=== PATIENT | female | born 1945 | race African-American/Black ===

== ENCOUNTER 2022-03-20 09:56 | Inpatient (IN) ==
[2022-03-20] MEDS ORDERED: Ipratropium/Albuterol Neb 3 ML IH ONE (10:03)
[2022-03-20] MEDS ORDERED: Iopamidol - 370 500 ML MLS IVP ONE (10:03)
[2022-03-20] MEDS ORDERED: Ipratropium/Albuterol Neb 3 ML ONE (10:04)
[2022-03-20 10:33] LABS: Hemoglobin 9.4 g/dL (11.5-15.4)
[2022-03-20 10:35] LABS: Hematocrit 29.4 % (35.3-44.9); Immature Platelets 4.5 % (1.1-6.1); Mean Corpuscular Hemoglobin 30.8 pg (28.0-33.3); Mean Corpuscular Volume 96.4 fL (83.0-100.0); Mean Platelet Volume 12.2 fL (9.4-12.4); Nucleated Red Blood Cells 2.8 /100 WBC (0); Platelet Count 159 K/mcL (140-400); Red Blood Count 3.05 M/mcL (3.82-4.97); Red Cell Distribution Width 16.7 % (11.5-14.5); White Blood Count 8.3 K/mcL (4.3-11.1)
[2022-03-20 11:05] LABS: Basophils # 0.2 K/mcL (0.0-0.2); Eosinophils # 0.3 K/mcL (0.0-0.6); Monocytes # 0.8 K/mcL (0.0-1.3); Platelet Estimate Normal (Normal)
[2022-03-20 12:21] LABS: VBG HCO3 19 mEq/L (21-27); VBG PCO2 36 mmHg (41-51); VBG PH 7.33 pH Units (7.32-7.42); VBG PO2 46 mmHg (25-50)
[2022-03-20 12:34] LABS: Calcium 8.5 mg/dL (8.6-10.3); Potassium 4.1 mEq/L (3.5-5.1)
[2022-03-20 12:44] LABS: Troponin I 0.06 ng/mL (< 0.04)
[2022-03-20 13:15] LABS: Amorphous Sediment,Urine Few per hpf (None-Few); Bacteria,Urine Moderate per hpf (None-Few); Bilirubin,Urine Negative (Negative); Blood,Urine Small (Negative); Clarity,Urine Turbid (Clear); Color,Urine Yellow (Yellow); Glucose,Urine (UA) Normal (Normal); Ketones,Urine Negative (Negative); Leukocyte Esterase,Urine Negative (Negative); Mucus,Urine Few per lpf (None-Few); Nitrite,Urine Negative (Negative); Protein,Urine >=600 mg/dL (Neg-Trace); RBC,Urine 0-3 per hpf (0-3); Specific Gravity,Urine 1.022 (1.010-1.025); Urobilinogen,Urine Normal (Normal); WBC,Urine 0-3 per hpf (0-3)
[2022-03-20 13:55] LABS: Influenza A PCR Negative (Negative); Influenza B PCR Negative (Negative); Resp. Syncytial Virus PCR Negative (Negative)
[2022-03-20 13:56] LABS: SARS-CoV-2 by PCR (In House) Negative (Negative)
[2022-03-20] MEDS ORDERED: methylPREDNISolone 125 MG/2 ML VIAL IVP ONE (14:09)
[2022-03-20] MEDS ORDERED: levoFLOXacin 750 MG/150 ML 750 MG/150 ML BAG IVPB ONE (14:15)
[2022-03-20] MEDS ORDERED: Naloxone 0.4 MG/ML INJ IVP PRN (14:43)
[2022-03-20] MEDS: Furosemide 40 MG/4 ML VIAL IVP SCH ×2 (15:41→21:38)
[2022-03-20] MEDS: Ipratropium/Albuterol Neb 3 ML IH SCH ×2 (17:39→23:13)
[2022-03-20] MEDS ORDERED: MethylPREDNISolone 40 MG/ML VIAL IVP SCH (18:00)
[2022-03-20] MEDS: MethylPREDNISolone 40 MG/ML VIAL IVP SCH (19:00)
[2022-03-20] MEDS ORDERED: Aspirin 81 MG TAB.CHEW PO ONE (20:03)
[2022-03-21] MEDS: Ipratropium/Albuterol Neb 3 ML IH SCH ×4 (04:09→23:06)
[2022-03-21 04:51] LABS: Calcium 8.3 mg/dL (8.6-10.3); Chol/HDL Ratio 4.3 (0-4.9); Magnesium 2.3 mg/dL (1.6-2.6); Potassium 4.1 mEq/L (3.5-5.1)
[2022-03-21 04:58] LABS: Basophils % 0.2 %; Eosinophils % 0.4 %; Hematocrit 25.3 % (35.3-44.9); Hemoglobin 8.3 g/dL (11.5-15.4); Immature Granulocytes % 0.7 % (0-4); Lymphocytes # 0.8 K/mcL (0.6-4.6); Lymphocytes % 13.3 %; Mean Corpuscular HGB Conc 32.8 g/dL (31.6-35.5); Mean Corpuscular Hemoglobin 29.9 pg (28.0-33.3); Mean Platelet Volume 10.6 fL (9.4-12.4); Monocytes # 0.7 K/mcL (0.0-1.3); Monocytes % 12.5 %; Neutrophils # 4.2 K/mcL (1.6-8.9); Nucleated Red Blood Cells 1.4 /100 WBC (0); Platelet Count 122 K/mcL (140-400); Red Blood Count 2.78 M/mcL (3.82-4.97); Red Cell Distribution Width 15.8 % (11.5-14.5); Segmented Neutrophils % 72.9 %; White Blood Count 5.7 K/mcL (4.3-11.1)
[2022-03-21 05:20] LABS: Estimated Average Glucose 123 mg/dl; Hemoglobin A1C 5.9 %
[2022-03-21] MEDS: MethylPREDNISolone 40 MG/ML VIAL IVP SCH (06:09)
[2022-03-21] MEDS ORDERED: levoFLOXacin 750 MG/150 ML 750 MG/150 ML BAG IVPB SCH (09:00)
[2022-03-21] MEDS: Furosemide 40 MG/4 ML VIAL IVP SCH ×2 (10:45→21:32)
[2022-03-21] MEDS: Aspirin Enteric Coated 81 MG Tablet PO SCH (10:46)
[2022-03-21] MEDS ORDERED: Dextrose Gel 15 GM/37.5 ML TUBE PO PRN ×2 (12:33)
[2022-03-21] MEDS ORDERED: *HR* Dextrose 50 % in Water (Syg) 50 ML SYRINGE IVP PRN (12:33)
[2022-03-21] MEDS ORDERED: D5% in Water 1,000 ML IVC PRN (12:33)
[2022-03-21 15:58] LABS: Appearance of Pleural Fl Clear (Clear)
[2022-03-21 16:08] LABS: RBC,Pleural Fluid < 2000 RBC/mcL
[2022-03-21 16:57] LABS: Glucose,Pleural Fluid 141 mg/dL (No Ref Range); LDH,Pleural Fluid 82 Units/L (No Ref Range); Total Protein,Pleural Fluid < 2.0 g/dL
[2022-03-21 17:45] LABS: Basophils,Pleural Fluid 0 %; Eosinophils,Pleural Fluid 0 %; Monocytes,Pleural Fluid 0 %
[2022-03-21] MEDS: Insulin LISPRO 300 UNITS/3 ML VIAL SUBQ SCH (18:09)
[2022-03-21] MEDS: *HR* Heparin 5,000 UNIT/ML VIAL SQ SCH (18:11)
[2022-03-22] MEDS: Ipratropium/Albuterol Neb 3 ML IH SCH ×2 (04:10→11:22)
[2022-03-22] MEDS: *HR* Heparin 5,000 UNIT/ML VIAL SQ SCH (05:08)
[2022-03-22 05:26] LABS: Basophils % 0.2 %; Eosinophils % 0.3 %; Hematocrit 26.4 % (35.3-44.9); Hemoglobin 8.4 g/dL (11.5-15.4); Immature Granulocytes % 0.9 % (0-4); Lymphocytes # 1.6 K/mcL (0.6-4.6); Lymphocytes % 16.9 %; Mean Corpuscular HGB Conc 31.8 g/dL (31.6-35.5); Mean Corpuscular Hemoglobin 29.2 pg (28.0-33.3); Mean Corpuscular Volume 91.7 fL (83.0-100.0); Mean Platelet Volume 11.1 fL (9.4-12.4); Monocytes # 1.2 K/mcL (0.0-1.3); Monocytes % 12.8 %; Nucleated Red Blood Cells 2.5 /100 WBC (0); Platelet Count 116 K/mcL (140-400); Red Blood Count 2.88 M/mcL (3.82-4.97); Segmented Neutrophils % 68.9 %
[2022-03-22 05:27] LABS: Neutrophils # 6.3 K/mcL (1.6-8.9); White Blood Count 9.2 K/mcL (4.3-11.1)
[2022-03-22 07:34] VITALS: O2SAT 97
[2022-03-22] MEDS: Insulin LISPRO 300 UNITS/3 ML VIAL SUBQ SCH ×2 (07:49→12:21)
[2022-03-22] MEDS ORDERED: levoFLOXacin 750 MG/150 ML 750 MG/150 ML BAG IVPB SCH (09:00)
[2022-03-22] MEDS ORDERED: Cholecalciferol (D-3) 1,000 UNIT (25MCG) TABLET PO SCH (09:00)
[2022-03-22 09:09] LABS: Calcium 8.2 mg/dL (8.6-10.3); Potassium 3.1 mEq/L (3.5-5.1)
[2022-03-22] MEDS: Aspirin Enteric Coated 81 MG Tablet PO SCH (09:56)
[2022-03-22] MEDS: Furosemide 40 MG/4 ML VIAL IVP SCH (09:57)
[2022-03-22 11:24] VITALS: BP 145/75; PULSE 69; TEMP 97.9
[2022-03-24 00:57] LABS: Fluid Source for Albumin PLEURAL FLUID
== END 2022-03-22 16:08 | disposition home or self-care (01) | DRG 280 ==
LOC: 2ANU 09:56 → EMEROOARM 09:56 → SUATTDRO 20:06 → 2ANU 20:45
PROVIDERS: ADMIT Internal Medicine; ATTEND Internal Medicine

== ENCOUNTER 2022-03-30 14:52 | Observation (INO) ==
[2022-03-30] MEDS ORDERED: 0.9 % Sodium Chloride 1,000 ML ONE (15:22)
[2022-03-30] MEDS ORDERED: Iopamidol - 370 500 ML MLS IVP ONE (15:25)
[2022-03-30] MEDS ORDERED: 0.9 % Sodium Chloride 500 ML IVC ONE (15:26)
[2022-03-30 16:08] LABS: Basophils # 0.1 K/mcL (0.0-0.2); Basophils % 0.5 %; Eosinophils # 0.3 K/mcL (0.0-0.6); Eosinophils % 2.7 %; Hematocrit 31.5 % (35.3-44.9); Hemoglobin 10.3 g/dL (11.5-15.4); Immature Granulocytes % 0.7 % (0-4); Lymphocytes # 2.2 K/mcL (0.6-4.6); Lymphocytes % 22.6 %; Mean Corpuscular HGB Conc 32.7 g/dL (31.6-35.5); Mean Corpuscular Hemoglobin 30.1 pg (28.0-33.3); Mean Corpuscular Volume 92.1 fL (83.0-100.0); Monocytes # 0.5 K/mcL (0.0-1.3); Monocytes % 5.6 %; Neutrophils # 6.6 K/mcL (1.6-8.9); Platelet Count 446 K/mcL (140-400); Red Blood Count 3.42 M/mcL (3.82-4.97); Red Cell Distribution Width 15.5 % (11.5-14.5); Segmented Neutrophils % 67.9 %; White Blood Count 9.7 K/mcL (4.3-11.1)
[2022-03-30 16:08] LABS: Bilirubin,Urine Negative (Negative); Blood,Urine Negative (Negative); Clarity,Urine Clear (Clear); Color,Urine Yellow (Yellow); Glucose,Urine (UA) Normal (Normal); Hyaline Casts,Urine Few per lpf (None Seen); Ketones,Urine Negative (Negative); Leukocyte Esterase,Urine Negative (Negative); Mucus,Urine Few per lpf (None-Few); Nitrite,Urine Negative (Negative); PH,Urine 5.5 pH Units (5.0-8.0); Protein,Urine 30 mg/dL (Neg-Trace); RBC,Urine 0-3 per hpf (0-3); Squamous Epithelial Cell,Urine Few per hpf (None-Few); Urobilinogen,Urine Normal (Normal); WBC,Urine 0-3 per hpf (0-3)
[2022-03-30 16:30] LABS: Alanine Aminotransferase 19 Units/L (7-52); Albumin 4.4 g/dL (3.5-5.7); Albumin/Globulin Ratio 1.8 (1.1-2.2); Alkaline Phosphatase 45 Units/L (34-104); Aspartate Amino Transferase 17 Units/L (13-39); BUN/Creatinine Ratio 29 (6-26); Bilirubin,Total 0.7 mg/dL (0.3-1.0); Blood Urea Nitrogen 76 mg/dL (8-23); Calcium 10.4 mg/dL (8.6-10.3); Carbon Dioxide 20 mEq/L (23-29); Chloride 98 mEq/L (98-107); Globulin 2.4 g/dL (2.4-3.5); Glucose 110 mg/dL (70-105); Osmolality,Calculated 303 (280-300); Potassium 3.6 mEq/L (3.5-5.1); Sodium 135 mEq/L (136-145); Total Protein 6.8 g/dL (6.4-8.9); Troponin I < 0.03 ng/mL (< 0.04)
[2022-03-30 16:56] LABS: Adenovirus Not Detected (Not Detect); Bordetella Pertussis Not Detected (Not Detect); Chlamydophila pneumoniae Not Detected (Not Detect); Coronavirus 229E Not Detected (Not Detect); Coronavirus HKU1 Not Detected (Not Detect); Coronavirus NL63 Not Detected (Not Detect); Coronavirus OC43 Not Detected (Not Detect); Human Metapneumovirus Not Detected (Not Detect); Human Rhinovirus/Enterovirus Not Detected (Not Detect); Influenza A Subtype 2009 H1 Not Detected (Not Detect); Influenza B Not Detected (Not Detect); Mycoplasma pneumoniae Not Detected (Not Detect); Parainfluenza Virus 1 Not Detected (Not Detect); Parainfluenza Virus 2 Not Detected (Not Detect); Parainfluenza Virus 3 Not Detected (Not Detect); Parainfluenza Virus 4 Not Detected (Not Detect); Respiratory Syncytial Virus Not Detected (Not Detect); SARS-CoV-2 Not Detected (Not Detect)
[2022-03-30] MEDS ORDERED: 0.9 % Sodium Chloride 1,000 ML IVC ONE (18:15)
[2022-03-30] MEDS ORDERED: Ondansetron 4 MG/2 ML VIAL IVP PRN (18:19)
[2022-03-30] MEDS ORDERED: Acetaminophen 325 MG TABLET PO PRN (18:19)
[2022-03-30] MEDS ORDERED: Naloxone 0.4 MG/ML INJ IVP PRN (18:19)
[2022-03-30] MEDS ORDERED: Ringers Solution, Lactated 1,000 ML IVC ONE (18:49)
[2022-03-30] MEDS ORDERED: Sodium Bicarbonate 150 MEQ in D5% in Water 1,000 ML IVC SCH (19:00)
[2022-03-31 03:19] LABS: Basophils # 0.1 K/mcL (0.0-0.2); Eosinophils # 0.3 K/mcL (0.0-0.6); Hematocrit 24.9 % (35.3-44.9); Immature Granulocytes % 0.2 % (0-4); Lymphocytes # 1.2 K/mcL (0.6-4.6); Lymphocytes % 24.4 %; Mean Corpuscular HGB Conc 32.5 g/dL (31.6-35.5); Mean Corpuscular Hemoglobin 29.8 pg (28.0-33.3); Mean Corpuscular Volume 91.5 fL (83.0-100.0); Mean Platelet Volume 11.8 fL (9.4-12.4); Monocytes # 0.5 K/mcL (0.0-1.3); Monocytes % 10.2 %; Neutrophils # 2.9 K/mcL (1.6-8.9); Platelet Count 300 K/mcL (140-400); Red Blood Count 2.72 M/mcL (3.82-4.97); Red Cell Distribution Width 15.2 % (11.5-14.5); Segmented Neutrophils % 58.2 %
[2022-03-31 03:32] LABS: Alanine Aminotransferase 14 Units/L (7-52); Albumin 3.4 g/dL (3.5-5.7); Albumin/Globulin Ratio 1.9 (1.1-2.2); Alkaline Phosphatase 32 Units/L (34-104); Aspartate Amino Transferase 14 Units/L (13-39); BUN/Creatinine Ratio 38 (6-26); Bilirubin,Total 0.7 mg/dL (0.3-1.0); Blood Urea Nitrogen 59 mg/dL (8-23); Calcium 8.8 mg/dL (8.6-10.3); Carbon Dioxide 27 mEq/L (23-29); Chloride 103 mEq/L (98-107); Globulin 1.8 g/dL (2.4-3.5); Glucose 102 mg/dL (70-105); Osmolality,Calculated 305 (280-300); Potassium 3.4 mEq/L (3.5-5.1); Sodium 139 mEq/L (136-145); Total Protein 5.2 g/dL (6.4-8.9); Troponin I < 0.03 ng/mL (< 0.04)
[2022-03-31 03:39] LABS: Hemoglobin 8.1 g/dL (11.5-15.4)
[2022-03-31 03:42] LABS: Thyroid Stimulating Hormone 2.603 mcIU/mL (0.340-5.600)
[2022-03-31] MEDS: *HR* Heparin 5,000 UNIT/ML VIAL SQ SCH ×2 (05:19→18:00)
[2022-03-31] MEDS: Aspirin 81 MG TAB.CHEW PO SCH (09:27)
[2022-03-31 15:01] VITALS: O2SAT 99
[2022-03-31] MEDS: Ringers Solution, Lactated 1,000 ML IVC SCH (17:54)
[2022-04-01 02:15] LABS: Basophils # 0.1 K/mcL (0.0-0.2); Basophils % 1.3 %; Eosinophils # 0.4 K/mcL (0.0-0.6); Hematocrit 25.4 % (35.3-44.9); Hemoglobin 8.1 g/dL (11.5-15.4); Immature Granulocytes % 0.4 % (0-4); Lymphocytes # 1.1 K/mcL (0.6-4.6); Mean Corpuscular HGB Conc 31.9 g/dL (31.6-35.5); Mean Corpuscular Hemoglobin 29.7 pg (28.0-33.3); Monocytes # 0.4 K/mcL (0.0-1.3); Monocytes % 8.8 %; Neutrophils # 2.7 K/mcL (1.6-8.9); Platelet Count 283 K/mcL (140-400); Red Blood Count 2.73 M/mcL (3.82-4.97); Red Cell Distribution Width 15.4 % (11.5-14.5); Segmented Neutrophils % 58.5 %; White Blood Count 4.7 K/mcL (4.3-11.1)
[2022-04-01 02:40] LABS: Calcium 8.7 mg/dL (8.6-10.3); Potassium 3.4 mEq/L (3.5-5.1)
[2022-04-01] MEDS: Ringers Solution, Lactated 1,000 ML IVC SCH (03:14)
[2022-04-01] MEDS: *HR* Heparin 5,000 UNIT/ML VIAL SQ SCH (06:20)
[2022-04-01 08:16] VITALS: PULSE 76; TEMP 97.9
[2022-04-01 08:37] VITALS: BP 118/49
[2022-04-01] MEDS: Aspirin 81 MG TAB.CHEW PO SCH (08:41)
[2022-04-01] MEDS ORDERED: Cyanocobalamin (B-12) 1,000 MCG TABLET PO SCH (09:00)
[2022-04-01] MEDS ORDERED: Cholecalciferol (D-3) 1,000 UNIT (25MCG) TABLET PO SCH (09:00)
== END 2022-04-01 14:36 | disposition home or self-care (01) ==
LOC: 2NENU 14:52 → EMEROOARM 14:52 → SUATTDRO 19:56 → 2NENU 20:58
PROVIDERS: ADMIT Pharmacist; ATTEND Internal Medicine